=== PATIENT | male | born 1975 | race Two or more races ===

== ENCOUNTER 2017-06-05 17:35 | Emergency (ER) | payer SELFPAY ==
[~2017-06-05] VITALS: Ht 180.3 cm; Wt 85.7 kg
--- NOTE | 2017-06-05 18:10 | Emergency Room Report ---
History of Present Illness General Chief Complaint: To Be Triaged Present Illness HPI 42 year male comes in complaining of hearing voices since this morning. Patient states that he hears voices doesn't know what they're saying however states that whatever it is that they are saying is negative. Patient states that he also has a visual hallucination associated with his auditory hallucinations. Patient states that he is normally on Prozac and has been off that medication for a few weeks. Patient states that he is treated by a hospital in [place] but he does not know the name of. Patient states he does not have a specific PCP. Patient states that he does smoke marijuana but has not smoked any in the past 2 days then denies any other illicit drug use. Patient denies any other chronic medical conditions outside of taking Prozac for hearing voices. Patient asking for transfer to a facility in [place] for management of his hearing voices. Patient denies any suicidal ideation any homicidal ideation, any depression, anxiety, any chest pain, shortness of breath , headache, vision changes, abdominal pain, urinary frequency, or any head injury. Allergies: Coded Allergies: PENICILLINS (Verified Allergy, Unknown, 06/05/17) Uncoded Allergies: PEANUT BUTTER (Allergy, Unknown, 06/05/17) Patient History Past Medical History: see triage record Past Surgical History: none Pertinent Family History: none Reviewed Nursing Documentation: PMH: Agreed, PSxH: Agreed Review of Systems All Other Systems: negative except mentioned in HPI Physical Exam Vital Signs Date Time Temp Pulse Resp B/P (MAP) Pulse Ox O2 Delivery O2 Flow Rate FiO2 06/05/17 18:06 97.9 72 16 130/86 99 Room Air Sp02 EP Interpretation: reviewed, normal General Appearance: no apparent distress, alert, GCS 15, non-toxic, other - desheveled Head: normocephalic, atraumatic Eyes: bilateral eye normal inspection, bilateral eye PERRL - constricted ENT: hearing grossly normal, normal pharynx, no angioedema, normal voice Neck: full range of motion, supple/symm/no masses Respiratory: chest non-tender, lungs clear, normal breath sounds, speaking full sentences Cardiovascular #1: regular rate, rhythm, no edema Musculoskeletal: back normal, gait/station normal, normal range of motion, non- tender Neurologic: alert, oriented x3, responsive, 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 Juarez is my supervising physician with whom patient management has been discussed with. ER Course Patient presented to me. Initial workup performed by me. Labs show inconclusive as to diagnosis. Will wait for psych eval in the morning. Care was transferred to Dr Vega. Laboratory Tests Test 06/05/17 19:10 White Blood Count 7.9 K/UL (4.8-10.8) Red Blood Count 4.83 M/UL (4.70-6.10) Hemoglobin 13.8 G/DL (14.2-18.0) L Hematocrit 43.5 % (42.0-52.0) Mean Corpuscular Volume 90 FL (80-99) Mean Corpuscular Hemoglobin 28.5 PG (27.0-31.0) Mean Corpuscular Hemoglobin Concent 31.7 G/DL (32.0-36.0) L Red Cell Distribution Width 11.6 % (11.6-14.8) Platelet Count 281 K/UL (150-450) Mean Platelet Volume 5.3 FL (6.5-10.1) L Neutrophils (%) (Auto) 56.7 % (45.0-75.0) Lymphocytes (%) (Auto) 32.5 % (20.0-45.0) Monocytes (%) (Auto) 7.1 % (1.0-10.0) Eosinophils (%) (Auto) 2.4 % (0.0-3.0) Basophils (%) (Auto) 1.3 % (0.0-2.0) Sodium Level 141 MMOL/L (136-145) Potassium Level 3.7 MMOL/L (3.5-5.1) Chloride Level 103 MMOL/L (98-107) Carbon Dioxide Level 32 MMOL/L (21-32) Anion Gap 6 mmol/L (5-15) Blood Urea Nitrogen 11 mg/dL (7-18) Creatinine 1.1 MG/DL (0.55-1.30) Estimate Glomerular Filtration Rate > 60 mL/min (>60) Glucose Level 85 MG/DL (74-106) Calcium Level 9.4 MG/DL (8.5-10.1) Total Bilirubin 0.3 MG/DL (0.2-1.0) Aspartate Amino Transferase (AST) 24 U/L (15-37) Alanine Aminotransferase (ALT) 27 U/L (12-78) Alkaline Phosphatase 66 U/L (46-116) Total Protein 7.9 G/DL (6.4-8.2) Albumin 4.2 G/DL (3.4-5.0) Globulin 3.7 g/dL Albumin/Globulin Ratio 1.1 (1.0-2.7) Salicylates Level 1.4 ug/mL (2.8-20) L Urine Opiates Screen Negative (NEGATIVE) Acetaminophen Level < 10 MCG/ML (10-30) L Urine Barbiturates Screen Negative (NEGATIVE) Phencyclidine (PCP) Screen Negative (NEGATIVE) Urine Amphetamines Screen Negative (NEGATIVE) Urine Benzodiazepines Screen Negative (NEGATIVE) Urine Cocaine Screen Negative (NEGATIVE) Urine Marijuana (THC) Screen Positive (NEGATIVE) H Serum Alcohol < 3 mg/dL APLA MARTINEZ Jun 05, 2017 18:10
[2017-06-05 19:42] LABS: BASOPHILS % (AUTO) 1.3 % (0.0-2.0); EOSINOPHILS % (AUTO) 2.4 % (0.0-3.0); LYMPHOCYTES % (AUTO) 32.5 % (20.0-45.0); MEAN CORPUSCULAR HEMOGLOBIN 28.5 PG (27.0-31.0); MEAN CORPUSCULAR HGB CONC 31.7 G/DL (32.0-36.0); MEAN CORPUSCULAR VOLUME 90 FL (80-99); MEAN PLATELET VOLUME 5.3 FL (6.5-10.1); MONOCYTES % (AUTO) 7.1 % (1.0-10.0); NEUTROPHILS % (AUTO) 56.7 % (45.0-75.0); PLATELET COUNT 281 K/UL (150-450); RED BLOOD COUNT 4.83 M/UL (4.70-6.10); RED CELL DISTRIBUTION WIDTH 11.6 % (11.6-14.8); WHITE BLOOD COUNT 7.9 K/UL (4.8-10.8)
[2017-06-05 20:11] LABS: ANION GAP 6 mmol/L (5-15); CALCIUM 9.4 MG/DL (8.5-10.1); CARBON DIOXIDE 32 MMOL/L (21-32); CHLORIDE 103 MMOL/L (98-107); CREATININE 1.1 MG/DL (0.55-1.30); GLOMERULAR FILTRATION RATE > 60 mL/min (>60); POTASSIUM 3.7 MMOL/L (3.5-5.1); SODIUM 141 MMOL/L (136-145)
[2017-06-05 20:16] LABS: ACETAMINOPHEN < 10 MCG/ML (10-30); ALANINE AMINOTRANSFERASE 27 U/L (12-78); ALBUMIN/GLOBULIN RATIO 1.1 (1.0-2.7); ASPARTATE AMINO TRANSFERASE 24 U/L (15-37); TOTAL PROTEIN 7.9 G/DL (6.4-8.2)
[2017-06-05 20:17] LABS: ALCOHOL < 3 mg/dL
[2017-06-05 21:30] VITALS: BP 135/85
[2017-06-06 01:00] VITALS: BP 135/84
--- NOTE | 2017-06-13 15:54 | Cardiology Report ---
APPROVED REPORT EKG Measurement Heart [id number] Normal sinus rhythm Voltage criteria for left ventricular hypertrophy Abnormal ECG
== END 2017-06-06 01:00 | disposition left against medical advice (07) ==
LOC: EMR 18:20
DX: R44.0 Auditory hallucinations (principal); R44.1 Visual hallucinations
CPT/HCPCS: 36415; 80053; 80307; 85025; 93005; 99283; G0480; 80329